=== PATIENT | male | born 1985 | race Caucasian/White ===

== ENCOUNTER 2016-11-23 11:53 | Emergency (ER) | payer OTHER | END 2016-11-23 13:39 | disposition home or self-care (01) | LOC: FER 11:53 | DX: S39.012A Strain of muscle, fascia and tendon of lower back, initial encounter (principal); M54.2 Cervicalgia; F17.210 Nicotine dependence, cigarettes, uncomplicated; X50.9XXA Other and unspecified overexertion or strenuous movements or postures, initial encounter | CPT/HCPCS: 99283 ==

== ENCOUNTER 2021-11-06 18:21 | Emergency (ER) | payer OTHER ==
[2021-11-06] MEDS ORDERED: NORCO 5-325 TA1 EACH PO (21:16)
== END 2021-11-06 21:55 | disposition home or self-care (01) ==
LOC: FER 18:21
DX: S62.625A Displaced fracture of middle phalanx of left ring finger, initial encounter for closed fracture (principal); Z28.310 Unvaccinated for COVID-19; W19.XXXA Unspecified fall, initial encounter; Y92.009 Unspecified place in unspecified non-institutional (private) residence as the place of occurrence of the external cause
CPT/HCPCS: 73140